=== PATIENT | male | born 1970 | race African-American/Black ===

== ENCOUNTER → 2016-10-01 | Outpatient (CLI) | payer BC ==
--- NOTE | 2016-10-01 22:59 | PN ---
DATE OF SERVICE: 10/01/2016 This is a 46-year-old gentleman who has been followed in the sleep center for treatment of obstructive sleep apnea/hypopnea syndrome. Recently patient received a new CPAP unit. He started to use it and came for follow-up visit for evaluation of his compliance and clinical response on treatment. I checked the patient's CPAP unit. CPAP pressure is 10 cm of water. Humidity is at the level of 4. RAMP is in auto regimen. Usage for the last month is 17 out of 30 nights; with more than 4 hours, 12 out of 30 nights. Patient had some upper respiratory infection and was not able to use equipment for several nights. No leak at all. Leak is zero liters per minute. Apnea-hypopnea index reading from the machine as average for the month is 2.2, which is within normal range. No sleepiness during the day. [place] Sleepiness Scale is 4. No snoring with the machine. MEDICATIONS: 1. Paxil. 2. Advair. 3. Proventil. 4. Lisinopril. During physical exam, the patient is in no distress. VITAL SIGNS: BP 139/68, HR 62, RR 16. Weight 283, which is about 6 pounds more than during previous visit. Temperature 97.6, oxygen saturation at room air 96%. HEENT: PERRLA, EOMI. LUNGS: Clear. Low position of soft palate. HEART: S1, S2 regular. ABDOMEN: Obese, soft, nontender. EXTREMITIES: No edema. [employer]: No focal deficit. IMPRESSION: 1. Severe obstructive sleep apnea/hypopnea syndrome, controlled with CPAP at 10 cm of water. 2. Patient used equipment slightly less than standard recommendations because he had upper respiratory infection during the last month. 3. Asthma. 4. Anxiety. 5. Status post bilateral knee surgery. PLAN: 1. Continue treatment with CPAP every night for the whole night. Patient is benefitting from treatment. 2. Losing weight. 3. Sleep hygiene with regular time in bed for at least 8 hours. 4. No driving if feeling any sleepiness. Thank you very much for allowing me to participate in the management of your patient. Sincerely, Yadiel Mccann MD, PhD, FAASM. Diplomat of [place] [employer], Sleep Medicine Board by [place], [place] [employer]
== END | disposition home or self-care (01) ==
LOC: SLEEP 16:38
PROVIDERS: ATTEND Internal Medicine
DX: G47.33 Obstructive sleep apnea (adult) (pediatric) (principal); J45.909 Unspecified asthma, uncomplicated; F41.9 Anxiety disorder, unspecified; Z98.890 Other specified postprocedural states; Z79.899 Other long term (current) drug therapy

== ENCOUNTER 2016-10-28 06:56 | Emergency (ER) | payer BC ==
[2016-10-28] MEDS ORDERED: ACETAMINOPHEN TAB 500 MG TAB PO STA (07:24)
[2016-10-28] MEDS ORDERED: IBUPROFEN 600 MG TAB PO STA (07:24)
[2016-10-28] MEDS ORDERED: ALBUTEROL NEBULIZED 2.5 MG/3 ML INHALATION STA (07:25)
[2016-10-28] MEDS ORDERED: IPRATROPIUM 0.5 MG/2.5 ML NEBU INHALATION STA (07:25)
--- NOTE | 2016-10-28 07:27 | ED ---
General Adult HPI - General Chief complaint: Shortness of Breath Stated complaint: diff breathin Time Seen by Provider: 10/28/16 07:00 Source: patient, RN notes reviewed Mode of arrival: ambulatory Limitations: no limitations - History of Present Illness Initial comments: This is a 46-year-old male presents emergency room complaining of some shortness of breath. Patient states he has a past medical history significant for asthma. Patient states she's also low-grade fever been coughing quite a bit of sputum. Patient states it started day ago. Patient denies any chest pain palpitations. Patient denies any abdominal pain patient denies nausea vomiting diarrhea. Patient denies headache patient denies numbness weakness. Patient denies lightheadedness dizziness or near syncopal episode. - Related Data Home Medications Medication Instructions Recorded Confirmed Albuterol Inhaler [Ventolin Hfa 2 puff INHALATION RT-QID PRN 10/28/16 10/28/16 Inhaler] Atorvastatin [Lipitor] 20 mg PO DAILY 10/28/16 10/28/16 Fluticasone/Salmeterol [Advair 1 puff PO RT-BID 10/28/16 10/28/16 250-50 Diskus] PARoxetine HCL [Paxil] 20 mg PO DAILY 10/28/16 10/28/16 amLODIPine BESYLATE [Norvasc] 5 mg PO DAILY 10/28/16 10/28/16 Previous Rx's Medication Instructions Recorded Azithromycin [Zithromax Tri-Neptali] 500 mg PO DAILY #3 tab 10/28/16 Ipratropium-Albuterol Nebulize 3 ml INHALATION Q4HR #30 neb 10/28/16 [Duoneb 0.5 mg-3 mg/3 ml Soln] predniSONE 40 mg PO DAILY #8 tab 10/28/16 Allergies Allergy/AdvReac Type Severity Reaction Status Date / Time No Known Allergies Allergy Verified 10/28/16 07:20 Review of Systems ROS Statement: Those systems with pertinent positive or pertinent negative responses have been documented in the HPI. ROS Other: All systems not noted in ROS Statement are negative. Past Medical History Past Medical History: Asthma, Hypertension History of Any Multi-Drug Resistant Organisms: None Reported Additional Past Surgical History / Comment(s): Knee Past Psychological History: Depression Smoking Status: Never smoker Past Alcohol Use History: Occasional Past Drug Use History: None Reported General Exam - General Exam Comments Initial Comments: GENERAL: Patient is well-developed and well-nourished. Patient is nontoxic and well- hydrated and is in mild distress. ENT: Neck is soft and supple. No significant lymphadenopathy is noted. Oropharynx is clear. Moist mucous membranes. Neck has full range of motion without eliciting any pain. EYES: The sclera were anicteric and conjunctiva were pink and moist. Extraocular movements were intact and pupils were equal round and reactive to light. Eyelids were unremarkable. PULMONARY: Decreased breath sounds CARDIOVASCULAR: There is a regular rate and rhythm without any murmurs gallops or rubs. ABDOMEN: Soft and nontender with normal bowel sounds. No palpable organomegaly was noted. There is no palpable pulsatile mass. SKIN: Skin is clear with no lesions or rashes and otherwise unremarkable. NEUROLOGIC: Patient is alert and oriented x3. Cranial nerves II through XII are grossly intact. Motor and sensory are also intact. Normal speech, volume and content. Symmetrical smile. MUSCULOSKELETAL: Normal extremities with adequate strength and full range of motion. No lower extremity swelling or edema. No calf tenderness. LYMPHATICS: No significant lymphadenopathy is noted PSYCHIATRIC: Normal psychiatric evaluation. Limitations: no limitations Course Vital Signs 10/28/16 10/28/16 10/28/16 07:00 07:30 07:40 Temperature 101 F H Pulse Rate 88 88 84 Respiratory 24 Rate Blood Pressure 135/58 O2 Sat by Pulse 96 Oximetry Medical Decision Making - Medical Decision Making Chest x-ray shows no acute abnormality. I went back to listen to the patient after his breathing treatment he sounded much better he stated he felt much better. Patient states he has no albuterol for his nebulizer at home Disposition Clinical Impression: Acute bronchitis with bronchospasm Disposition: HOME SELF-CARE Prescriptions: Azithromycin [Zithromax Tri-Neptali] 500 mg PO DAILY #3 tab Ipratropium-Albuterol Nebulize [Duoneb 0.5 mg-3 mg/3 ml Soln] 3 ml INHALATION Q4HR #30 neb predniSONE 40 mg PO DAILY #8 tab Referrals: Erik Orosco DO [Primary Care Provider] - 1-2 days Time of Disposition: 08:08
[2016-10-28] MEDS ORDERED: methylPREDNISolone SOD SUCCI 125 MG/2 ML VIAL IM ONE (07:30)
--- NOTE | 2016-10-28 08:02 | XR ---
EXAMINATION TYPE: XR chest 2V DATE OF EXAM: 10/28/2016 7:59 AM COMPARISON: NONE HISTORY: Difficulty in breathing. History of asthma. TECHNIQUE: Frontal and lateral views of the chest are obtained. FINDINGS: Exam is slightly suboptimal secondary to patient's body habitus. There is no focal air spa ce opacity, pleural effusion, or pneumothorax seen. The cardiac silhouette size is within normal amor its. The osseous structures are intact. IMPRESSION: No suspicious acute infiltrate identified.
[2016-10-28 08:12] VITALS: BP 108/58; PULSE 88; RESP 14; TEMP 102
== END 2016-10-28 08:30 | disposition home or self-care (01) ==
LOC: EC 06:56
DX: J20.9 Acute bronchitis, unspecified (principal); J45.909 Unspecified asthma, uncomplicated; I10 Essential (primary) hypertension; F32.9 Major depressive disorder, single episode, unspecified; Z79.899 Other long term (current) drug therapy; Z79.52 Long term (current) use of systemic steroids
CPT/HCPCS: 96372 ×2; 99285 ×2; 94640; 71020; J2930; 99284

== ENCOUNTER 2019-04-14 11:09 | Day surgery (SDC) | payer BC ==
[2019-04-11 13:05] VITALS: BMI 32.4
[~2019-04-14 11:09] MED LIST: LACTATED RINGERS 1,000 ML IV SCH
[2019-04-14 11:43] VITALS: RESP 16; TEMP 97.7
[2019-04-14] MEDS ORDERED: LIDOCAINE 1% 20 ML VIAL (10MG/ML) FOR IV START INTRADERMA ONE (11:52)
[2019-04-14] MEDS ORDERED: PROPOFOL 10 MG/ML 20 ML VIAL IV ONE (12:13)
--- NOTE | 2019-04-14 12:46 | P.PCN ---
Date of Procedure: 04/14/19 Procedure(s) Performed: BRIEF HISTORY: Patient is a 49-year-old pleasant , -[place] male scheduled for an elective colonoscopy as a part of screening for colorectal neoplasia. PROCEDURE PERFORMED: Colonoscopy. PREOPERATIVE DIAGNOSIS: Screening For colon cancer. IV sedation per Anesthesia. PROCEDURE: After informed consent was obtained, the patient, was brought into the endoscopy unit. IV sedation was administered by Anesthesia under continuous monitoring. Digital rectal examination was normal. Initially the Olympus CF-160 flexible video colonoscope was then inserted in the rectum, gradually advanced into the cecum without any difficulty. Careful examination was performed as the scope was gradually being withdrawn. Ileocecal valve and the appendiceal orifice were visualized and appeared normal. Prep was excellent. Mucosa of the cecum, ascending colon, transverse colon, descending colon, sigmoid colon, and rectum appeared normal. Retroflexion was performed in the rectum and no lesions were seen. The patient tolerated the procedure well. IMPRESSION: Normal-appearing colon from rectum to cecum no evidence of colorectal neoplasia. RECOMMENDATIONS: Findings of this examination were discussed with the patient less his family. He was advised to have a repeat screening colonoscopy in 10 years.
[2019-04-14 12:59] VITALS: BP 120/75; PULSE 52
== END 2019-04-14 13:24 | disposition home or self-care (01) ==
LOC: ORWHC2ENDO 11:09
PROVIDERS: ATTEND Internal Medicine Gastroenterology
DX: Z12.11 Encounter for screening for malignant neoplasm of colon (principal); I10 Essential (primary) hypertension; J45.909 Unspecified asthma, uncomplicated; G47.33 Obstructive sleep apnea (adult) (pediatric); F39 Unspecified mood [affective] disorder; Z79.899 Other long term (current) drug therapy
CPT/HCPCS: J2704; G0121